=== PATIENT | male | born 1960 | race Caucasian/White ===

== ENCOUNTER 2019-02-09 03:15 | Emergency (ER) | payer BC ==
[~2019-02-09] VITALS: Ht 175.3 cm; Wt 84.8 kg
[~2019-02-09 03:15] MED LIST: RAMI5 PO
[2019-02-09] MEDS ORDERED: ERYT1OIN BOTHEYES (04:21)
== END 2019-02-09 04:51 | disposition home or self-care (01) ==
LOC: ER 03:15
DX: H16.133 Photokeratitis, bilateral (principal); W89.8XXA Exposure to other man-made visible and ultraviolet light, initial encounter; I10 Essential (primary) hypertension
CPT/HCPCS: 99283; A9270-GY

== ENCOUNTER 2020-12-18 08:25 | Day surgery (SDC) | payer BC ==
[~2020-12-18] VITALS: Ht 175.3 cm; Wt 86.0 kg
[~2020-12-18 08:25] MED LIST changes: +AMLO5 PO; +ERYT1OIN BOTHEYES
--- NOTE | 2020-12-18 09:08 | NUR ---
12/18/20 0908 Berna Baca 1 TRY RIGHT UPPER ARM TWICE MOVED
== END 2020-12-18 10:50 | disposition home or self-care (01) ==
LOC: ORSCSDS 08:25
PROVIDERS: Surgery
PROC: 0DJD8ZZ Inspection of Lower Intestinal Tract, Via Natural or Artificial Opening Endoscopic (ICD-10-PCS; principal; 2020-12-18 09:45)
DX: Z12.11 Encounter for screening for malignant neoplasm of colon (principal); I10 Essential (primary) hypertension; Z79.899 Other long term (current) drug therapy
CPT/HCPCS: J2704; J7120